=== PATIENT | female | born 1960 | race Caucasian/White ===

== ENCOUNTER 2018-04-22 03:43 | Emergency (ER) | payer OTHER | END 2018-04-22 05:36 | disposition home or self-care (01) | LOC: E/R 03:43 | DX: L30.9 Dermatitis, unspecified (principal); R06.02 Shortness of breath | CPT/HCPCS: 93005; 99283-25 ==

== ENCOUNTER 2018-12-08 01:58 | Emergency (ER) | payer OTHER ==
[2018-12-08] MEDS: SOD CHLORIDE 0.9% 1,000 ML IV (03:30)
[2018-12-08] MEDS: LORAZEPAM 2 MG INJ IV (03:31)
[2018-12-08] MEDS: DICYCLOMINE 20 MG INJ IM (03:31)
[2018-12-08 03:32] LABS: ADD MAN DIFF? NO
[2018-12-08 03:35] LABS: BASOPHILS % 0.4 % (0.0-2.0); EOSINOPHILS # 0.1 10^3/ul (0.0-0.5); EOSINOPHILS % 1.4 % (0.0-7.0); HEMOGLOBIN 11.5 g/dl (12.0-16.0); LYMPHOCYTES # 2.3 10^3/ul (0.8-2.9); LYMPHOCYTES % 27.3 % (15.0-51.0); MEAN CORPUSCULAR HEMOGLOBIN 27.8 pg (29.0-33.0); MEAN CORPUSCULAR HGB CONC 31.1 g/dl (32.0-37.0); MEAN CORPUSCULAR VOLUME 89.6 fl (82.0-101.0); MONOCYTE # 0.6 10^3/ul (0.3-0.9); MONOCYTES % 7.7 % (0.0-11.0); NEUTROPHIL # 5.3 10^3/ul (1.6-7.5); PLATELET COUNT 520 10^3/UL (140-415); RED BLOOD COUNT 4.13 10^6/ul (4.20-5.40); RED CELL DISTRIBUTION WIDTH 13.5 % (11.5-14.5)
[2018-12-08 03:35] LABS: WHITE BLOOD COUNT 8.3 10^3/ul (4.8-10.8)
[2018-12-08 03:55] LABS: ALANINE AMINOTRANSFERASE 33 IU/L (13-69); ALBUMIN 3.7 g/dl (3.3-4.9); ALBUMIN/GLOBULIN RATIO 1.19; ALKALINE PHOSPHATASE 75 IU/L (42-121); ANION GAP 8 (5-13); ASPARTATE AMINO TRANSFERASE 26 IU/L (15-46); BILIRUBIN,INDIRECT 0.2 mg/dl (0-1.1); BILIRUBIN,TOTAL 0.2 mg/dl (0.2-1.3); BLOOD UREA NITROGEN 12 mg/dl (7-20); CALCIUM 9.5 mg/dl (8.4-10.2); CARBON DIOXIDE 30 mmol/L (21-31); CHLORIDE 105 mmol/L (97-110); CREATININE 0.74 mg/dl (0.44-1.00); Estimated GFR > 60 mL/min (>60); GLUCOSE 102 mg/dl (70-220); LIPASE 712 U/L (23-300); POTASSIUM 3.9 mmol/L (3.5-5.1); SODIUM 143 mmol/L (135-144); TOTAL PROTEIN 6.8 g/dl (6.1-8.1)
== END 2018-12-08 05:01 | disposition home or self-care (01) ==
LOC: E/R 01:58
DX: E86.0 Dehydration (principal); R19.7 Diarrhea, unspecified; F41.1 Generalized anxiety disorder
CPT/HCPCS: 36415; 80053; 83690; 85025; 93005; 96372; 96374; 99284-25